=== PATIENT | female | born 1995 | race Caucasian/White ===

== ENCOUNTER 2018-01-14 04:21 | Emergency (ER) | payer BC ==
[~2018-01-14] VITALS: Ht 180.3 cm; Wt 73.6 kg
[2018-01-14 04:26] VITALS: TEMP 36.8; Ht 180.3 cm; Wt 73.6 kg
[2018-01-14] MEDS ORDERED: OXYCODONE IR HOME PACK PO ONE (04:45)
--- NOTE | 2018-01-14 04:48 | EMERGENCY ROOM VISIT NOTE ---
ED Visit Note First contact with patient: 04:30 CHIEF COMPLAINT: Foot pain HISTORY OF PRESENT ILLNESS: This 22-year-old patient presents to the emergency department with boyfriend complaining of swelling and pain in the left foot at rest and worse with weight bearing. The patient twisted it when she was running inside. The patient rates the pain as throbbing and 4/10. The patient has Motrin and Tylenol with relief of the pain. The patient is barely able to walk. No numbness or weakness. No ankle pain. There are no lacerations of the foot. The patient is able to move all of their toes and their ankle without pain. no previous fracture to this foot. Patient states she has sprained his foot in the past. She does not have a orthopedic doctor. REVIEW OF SYSTEMS: GENERAL: A 6 system review of systems was completed with positives and pertinent negatives in the HPI. ALLERGIES: None MEDICATIONS: None PMH: None SOCIAL HISTORY: No drug use PHYSICAL EXAM: Vital Signs: Reviewed Nurse's notes, vital signs stable. GENERAL : Pleasant female, in no acute distress, but appears in pain, well-developed, well-nourished. MUSCULOSKELATAL: There is no visual deformity of the left foot. There is no erythema no ecchymosis. There is no warmth. There is tenderness and swelling over the lateral aspect of the left foot. There is no tenderness over the lateral or medial malleolus. No tenderness of the tib/fib. The range of motion of the foot is limited secondary to pain. There is no tenderness over the plantar fascia. The skin is intact and there are no lacerations or puncture wounds. Dorsalis pedis pulse 2+. Capillary refill less than 2 seconds. EMERGENCY DEPARTMENT COURSE: I examined the patient. An X-ray of the left foot was reviewed by myself and my attending and reveals fifth metatarsal fracture. Splinting Indication: foot fx Verbal consent obtained. Risks and benefits were explained with the usual customary discussion. The injured extremity was identified. The patient was prepped and measured for the placement of a posterior ortho-glass splint. Splint applied in the standard fashion over a layer of webril and secured using an elastic bandage. Set into a position of function. Normal neurovascular status after placement verified by me. The patient tolerated the procedure well and the care of the splint was discussed with the patient/family. No complications. The patient was placed in a posterior Ortho-Glass splint and neurovascular status was rechecked after placement as intact. Patient was instructed on the use of crutches. Patient was advised to follow-up with orthopedics today for definitive care for her foot fracture or here in the ER sooner for severe pain, numbness, tingling, worsening signs or symptoms or as needed. The patient was discharged home in good condition. DIAGNOSIS: Left foot fracture TREATMENT: Oxycodone (OxyIR) 5mg: Take 1-2 pills every four hours for breakthrough pain. Avoid alcohol, operating machinery or dangerous equipment, working on ladders or roofs, DRIVING, or situations where being under the influence may be dangerous. It is recommended to use an [id number] stool softener such as Colace, 100mg twice daily while taking this medication to avoid constipation. Ibuprofen(Motrin, Advil) may be used for fever or pain. Use 600mg every six hours as needed. Take with food. Avoid using more than 2400mg in a 24 hour period. Do not use 2400mg per day for more than three consecutive days without physician direction. Prolonged inappropriate use can lead to stomach upset or ulcers. This medication can be taken if you need to drive, work, or perform activities which may be dangerous when taking narcotic pain medication. (AND/OR) Acetaminophen(Tylenol) may be used for fever or pain. Use 1000mg every six hours as needed. Avoid using more than 3000mg in a 24 hour period. This medication can be taken if you need to drive, work, or perform activities which may be dangerous when taking narcotic pain medication. Ice compresses for 20 minutes at a time four times daily for 2-3 days. Use the crutches as instructed. Rest and elevate your injury. Do not get the splint wet. If your splint feels excessively tight, you have worsening pain, develop numbness or tingling, or your digits appear blue, loosen the ulz wrap. Then reapply the luz wrap gently without removing the splint. If your symptoms are not quickly relieved return to the ER for re- evaluation. Continue current medications. Return to the ER immediately for any numbness, tingling, severe pain, extreme swelling in the extremity or as needed. Call Orthopedics today after 8 AM to arrange follow up for your injury. Allergies Coded Allergies: No Known Allergies (Unverified , 01/14/18) Vital Signs Date Time Temp Pulse Resp B/P (MAP) Pulse Ox O2 Delivery O2 Flow Rate FiO2 01/14/18 04:26 36.8 85 18 104/67 99 Room Air Departure Information Referrals [facility] (PCP) Patient Instructions [facility]ly [facility]
[2018-01-14 05:19] VITALS: BP 107/85; PULSE 86; O2SAT 94
--- NOTE | 2018-01-14 06:50 | DIAGNOSTIC IMAGING REPORT ---
L FOOT MIN 3 VIEWS ROUTINE CLINICAL HISTORY: twist, pain trauma. Pain. COMPARISON: None. DISCUSSION: Oblique fracture mid to distal aspect fifth metatarsal. Moderate bony distraction. Localized soft tissue edema. Remaining osseous structures are unremarkable There is no evidence for soft tissue swelling. IMPRESSION: Like somewhat distracted fracture distal fifth metatarsal. Overlying soft tissue edema. The above report was generated using voice recognition software. It may contain grammatical, syntax or spelling errors. Electronically signed by: Kadeem Hernandez M.D. 01/14/2018 6:49 AM Dictated Date/Time: 01/14/2018 6:48 AM
== END 2018-01-14 05:19 | disposition home or self-care (01) ==
LOC: C.EDB 04:22 → C.EDA 05:19
DX: S92.352A Displaced fracture of fifth metatarsal bone, left foot, initial encounter for closed fracture (principal); X50.1XXA Overexertion from prolonged static or awkward postures, initial encounter; Y93.02 Activity, running